=== PATIENT | male | born 1960 | race Two or more races ===

== ENCOUNTER 2018-05-03 09:38 | Inpatient (IN) | payer OTHER ==
[~2018-05-03] VITALS: Ht 180.3 cm; Wt 99.8 kg
[2018-05-03] MEDS ORDERED: LISINOPRIL10 MG ORAL (09:51)
[2018-05-03] MEDS ORDERED: HYDROCHLOROTH12.5 M2 ORAL (09:51)
[2018-05-03] MEDS ORDERED: ATENOLOL25 MG ORAL (09:51)
[2018-05-03] MEDS ORDERED: COMPLERA TABLE1 EACH ORAL (09:51)
[2018-05-03 10:05] VITALS: BP 136/91
--- NOTE | 2018-05-03 10:31 | Emergency Room Report ---
History of Present Illness General Chief Complaint: General Complaint Source: Patient Present Illness HPI 58-year-old male with history of hypertension, high cholesterol, family history of mom with VA in her 50s, presents with left shoulder, left anterior chest, left neck pain since the past few days with a sensation of lightheadedness upon standing yesterday. He reports taking a baby aspirin prior to arrival, still with this vague chest pain sensation, which she reports is a dull ache, and it' s the same pain is having his left shoulder chest and neck without any history of trauma. Shortness of breath, cough, hemoptysis, leg pain, recent travel, syncope. He reports this pain is unusual for him and he is not had a stress test in many many years. Allergies: Coded Allergies: No Known Allergies (Unverified , 05/03/18) Patient History Past Medical History: see triage record Reviewed Nursing Documentation: PMH: Agreed; PSxH: Agreed Nursing Documentation-PMH Past Medical History: No History, Except For Hx Cardiac Problems: No - HIV Hx Hypertension: Yes Review of Systems All Other Systems: negative except mentioned in HPI Physical Exam Vital Signs Date Time Temp Pulse Resp B/P (MAP) Pulse Ox O2 Delivery O2 Flow Rate FiO2 05/03/18 09:40 97.9 60 18 133/93 98 Room Air Sp02 EP Interpretation: reviewed, normal General Appearance: no apparent distress, alert, non-toxic Head: normocephalic Eyes: bilateral eye normal inspection, bilateral eye PERRL, bilateral eye EOMI ENT: normal ENT inspection, hearing grossly normal, normal pharynx, no angioedema, normal voice, moist mucus membranes Neck: normal inspection, full range of motion, supple, supple/symm/no masses Respiratory: chest non-tender, lungs clear, normal breath sounds, chest symmetrical, palpation of chest normal Cardiovascular #1: normal peripheral pulses, regular rate, rhythm Cardiovascular #2: 2+ radial (R), 2+ radial (L), 2+ dorsalis pedis (R), 2+ dorsalis pedis (L) Gastrointestinal: normal inspection, non tender, soft, no mass, no guarding, no rebound Rectal: deferred Genitourinary: normal inspection, no CVA tenderness Musculoskeletal: back normal, gait/station normal, normal range of motion, non- tender, no calf tenderness, Haylee's Sign negative Neurologic: alert, responsive, 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 I do not suspect his pain is coming from dissection or PE. Will admit this patient stable currently. EKG Diagnostic Results EKG Time: 10:14 EP Interpretation: No STEMI Rate: normal Rhythm: NSR ST Segments: no acute changes ASA given to the pt in ED: Yes Rhythm Strip Diag. Results Rhythm Strip Time: 10:30 EP Interpretation: yes Rate: 65 Rhythm: NSR, no PVC's, no ectopy Chest X-Ray Diagnostic Results Chest X-Ray Diagnostic Results : Chest X-Ray Ordered: Yes # of Views/Limited/Complete: 1 View Indication: Chest Pain EP Interpretation: Yes Interpretation: no consolidation, no effusion, no pneumothorax, no acute cardiopulmonary disease Impression: No acute disease Electronically Signed by: Ruth Archer MD Last Vital Signs Date Time Temp Pulse Resp B/P (MAP) Pulse Ox O2 Delivery O2 Flow Rate FiO2 05/03/18 10:06 65 13 Room Air 05/03/18 10:05 98.0 136/91 97 Disposition: ADMITTED INPATIENT Condition: Stable Signed Out To: RUTH García M.D May 03, 2018 10:31
[2018-05-03] MEDS ORDERED: Nitroglycerin 2% oint pkt TOPIC ONE (10:45)
[2018-05-03] MEDS ORDERED: Aspirin Baby 81mg ORAL ONE (10:45)
[2018-05-03 10:52] LABS: BASOPHILS % (AUTO) 1.2 % (0.0-2.0); EOSINOPHILS % (AUTO) 4.2 % (0.0-3.0); LYMPHOCYTES % (AUTO) 40.9 % (20.0-45.0); MEAN CORPUSCULAR VOLUME 90 FL (80-99); MONOCYTES % (AUTO) 6.9 % (1.0-10.0); NEUTROPHILS % (AUTO) 46.9 % (45.0-75.0); PLATELET COUNT 177 K/UL (150-450); RED BLOOD COUNT 6.25 M/UL (4.70-6.10); RED CELL DISTRIBUTION WIDTH 11.7 % (11.6-14.8); WHITE BLOOD COUNT 6.6 K/UL (4.8-10.8)
[2018-05-03 10:55] LABS: HEMOGLOBIN 18.9 G/DL (14.2-18.0)
[2018-05-03 11:38] LABS: ANION GAP 8 mmol/L (5-15); BLOOD UREA NITROGEN 14 mg/dL (7-18); CARBON DIOXIDE 32 MMOL/L (21-32); CHLORIDE 98 MMOL/L (98-107); CREATININE 1.2 MG/DL (0.55-1.30); POTASSIUM 4.2 MMOL/L (3.5-5.1); SODIUM 138 MMOL/L (136-145)
[2018-05-03 11:49] LABS: ALANINE AMINOTRANSFERASE 67 U/L (12-78); ALBUMIN 4.3 G/DL (3.4-5.0); ALBUMIN/GLOBULIN RATIO 0.8 (1.0-2.7); ALKALINE PHOSPHATASE 73 U/L (46-116); ASPARTATE AMINO TRANSFERASE 31 U/L (15-37); BILIRUBIN,TOTAL 0.7 MG/DL (0.2-1.0)
[2018-05-03 12:15] VITALS: BP 123/87
--- NOTE | 2018-05-03 13:47 | Diagnostic Imaging Report ---
Indication: Chest pain Comparison: None A single view chest radiograph was obtained. Findings: No definite infiltrate or pulmonary vascular congestion identified. The heart is enlarged. The aorta is mildly enlarged consistent with atherosclerotic vascular disease. The bones are osteopenic. Impression: No acute disease
[2018-05-03 13:49] VITALS: BP 120/80
[2018-05-03 16:00] VITALS: BP 101/63
[2018-05-03 17:00] VITALS: BP_SYST 113; BP_SYST 115; BP_SYST 120; BP_DIAS 71; BP_DIAS 77
[2018-05-03 20:00] VITALS: BP 111/71
[2018-05-03] MEDS: Heparin 5000 units/ml inj SUBQ SCH (21:00)
--- NOTE | 2018-05-03 23:46 | History and Physical Report ---
DATE OF ADMISSION: 05/03/2018 REASON FOR ADMISSION: Chest pain and dizziness. HISTORY OF PRESENT ILLNESS: This is a 58-year-old male with multiple risk factors for premature coronary disease who noted dizziness yesterday while at work. It was unprovoked, somewhat positional, and at times made him feel like the room was spinning. He did not go to work today, but did note left neck, shoulder, and chest discomfort for several days on an off, but not associated with activity. In the emergency room, he noted the dull achy pain persisted with no other constitutional symptoms. PAST MEDICAL HISTORY: Includes hypertension and hyperlipidemia. FAMILY HISTORY: Notable for premature coronary disease. SOCIAL HISTORY: Negative for smoking, alcohol, or substance abuse. MEDICATIONS: Reviewed and reconciled. REVIEW OF SYSTEMS: A 10-point review of systems performed, all systems negative other than noted above. PHYSICAL EXAMINATION: VITAL SIGNS: Blood pressure 133/93, pulse 60, respirations 18, and afebrile. HEENT: Conjunctivae pink. Oropharynx clear. Mucous membranes moist. NECK: Supple. No bruits. Jugular venous pressure normal. LUNGS: Clear. CARDIAC: Regular rhythm and rate. Normal S1, S2 with no murmur, rub, or gallop. ABDOMEN: Soft and nontender. EXTREMITIES: No edema. NEUROLOGIC: Nonfocal. DIAGNOSTIC DATA: EKG with sinus rhythm, slight J-point elevation in the precordial leads. Chest x-ray with no acute process. Troponin levels negative. Echocardiogram pending. Vital signs reviewed and the patient is presently nonorthostatic. IMPRESSION: 1. Dizziness, may be due to BPPV versus orthostatic symptoms. 2. Chest pain, may be an acute coronary syndrome or musculoskeletal. 3. History of hypertension, controlled. 4. History of hyperlipidemia. PLAN: 1. Cardiac monitoring. 2. Serial troponin. 3. Monitor orthostatics. 4. Carotid duplex. 5. Echocardiogram. 6. Continue beta-blockade and anti-platelet therapy with aspirin. 7. Check lipid panel. 8. Further recommendations to follow based on clinical course. Gerald Dotson M.D. : THADDEUS JOB#: [id number] CC:
[2018-05-04 04:00] VITALS: BP 118/72
[2018-05-04 08:00] VITALS: BP 134/88
[2018-05-04 08:37] LABS: BASOPHILS % (AUTO) 1.3 % (0.0-2.0); EOSINOPHILS % (AUTO) 4.1 % (0.0-3.0); HEMOGLOBIN 16.7 G/DL (14.2-18.0); LYMPHOCYTES % (AUTO) 39.7 % (20.0-45.0); MEAN CORPUSCULAR VOLUME 90 FL (80-99); MONOCYTES % (AUTO) 8.8 % (1.0-10.0); NEUTROPHILS % (AUTO) 46.1 % (45.0-75.0); PLATELET COUNT 156 K/UL (150-450); RED BLOOD COUNT 5.35 M/UL (4.70-6.10); RED CELL DISTRIBUTION WIDTH 11.4 % (11.6-14.8); WHITE BLOOD COUNT 5.3 K/UL (4.8-10.8)
[2018-05-04] MEDS: Heparin 5000 units/ml inj SUBQ SCH (08:46)
[2018-05-04] MEDS ORDERED: Lisinopril 10mg tab ORAL SCH (09:00)
[2018-05-04] MEDS ORDERED: Atenolol 25mg tab ORAL SCH ×2 (09:00)
[2018-05-04] MEDS ORDERED: Aspirin Baby 81mg ORAL SCH (09:00)
[2018-05-04 09:08] LABS: ALANINE AMINOTRANSFERASE 53 U/L (12-78); ALBUMIN 3.6 G/DL (3.4-5.0); ALBUMIN/GLOBULIN RATIO 0.9 (1.0-2.7); ALKALINE PHOSPHATASE 61 U/L (46-116); ANION GAP 6 mmol/L (5-15); ASPARTATE AMINO TRANSFERASE 25 U/L (15-37); BILIRUBIN,TOTAL 0.7 MG/DL (0.2-1.0); BLOOD UREA NITROGEN 15 mg/dL (7-18); CALCIUM 8.8 MG/DL (8.5-10.1); CARBON DIOXIDE 31 MMOL/L (21-32); CHLORIDE 104 MMOL/L (98-107); CHOLESTEROL 197 MG/DL (< 200); HDL CHOLESTEROL 31 MG/DL (40-60); POTASSIUM 3.8 MMOL/L (3.5-5.1); SODIUM 141 MMOL/L (136-145); TRIGLYCERIDES 152 MG/DL (30-150)
[2018-05-04 12:00] VITALS: BP 129/93
--- NOTE | 2018-05-04 18:16 | Progress Note ---
DATE: 05/04/2018 CARDIOLOGY AND INTERNAL MEDICINE PROGRESS SUBJECTIVE: The patient has no chest pain or shortness of breath. No dizziness. Monitored rhythm sinus. Troponins negative PHYSICAL EXAMINATION: VITAL SIGNS: Blood pressure 134/88, pulse 66, respiratory rate 18. LUNGS: Clear. CARDIAC: Regular. Normal S1, S2 with a fourth heart sound. ABDOMEN: Soft. No edema. LABORATORY DATA: White count 5 and hemoglobin 16.7. Total cholesterol 197, LDL 146, HDL 31. TSH negative. Chemistry panel normal. IMPRESSION: 1. Dizziness has resolved and was possibly due to BPPV or mild hypovolemia. 2. Hypertension with mild diastolic blood pressure elevations. 3. Dyslipidemia with low HDL, no signs of acute coronary insufficiency. 4. Polycythemia improved with hydration. PLAN: 1. Continue anti-platelet therapy with aspirin. 2. Continue to hold thiazide diuretic. 3. Increase exercise program as an outpatient. 4. Reassess for statin therapy long-term or niacin if tolerated. 5. Outpatient exercise stress test to be scheduled. 6. I have given him my office number for an exam this week and have I asked him to return to the hospital emergently should his chest pain recur. 7. He will be discharged home on current medication regimen. Gerald Dotson M.D. DR: Maryann JOB#: [id number] CC:
--- NOTE | 2018-05-05 12:22 | Discharge Summary ---
Discharge Summary Discharge Summary _ DATE OF ADMISSION: 05/03/2018 DATE OF DISCHARGE: 05/04/2018 REASON FOR ADMISSION: 58 years old male with past medical history of hypertension, hyperlipidemia , presented with complaint of dizziness while at work. It was not provoked unprovoked somewhat positional and at times felt like the room was spinning. He did not go to work the next days, intermittent i and not associated with any activity. In emergency room patient reported dull achy pain with no other constitutional symptoms. Vital signs were stable. Troponin was negative. EKG revealed sinus rhythm, no acute ischemic changes. Laboratory workup was essentially stable except elevated hemoglobin 18.9 and hematocrit 56 . Due to multiple risk factors for coronary disease, patient was admitted with diagnoses of dizziness, possible BPV versus orthostatic symptoms, chest pain , rule out acute coronary syndrome, possible musculoskeletal,pain, hypertension, hyperlipidemia., polycythemia. HOSPITAL COURSE: Patient admitted to telemetry floor. Patient was given 1 L of intravenous fluids. Serial troponin were negative. EKG revealed no acute ischemic changes. Patient was ruled out for acute ID. No change in orthostatic vital signs. Patient at home was on hydrochlorothiazide along with beta [place] for blood pressure management. Hydrochlorothiazide was held. Echocardiogram revealed preserved ejection fraction of 60% and right ventricular systolic pressure of 32. No evidence of wall motion abnormality. Antiplatelet therapy with aspirin and beta blockade were continued. Blood pressure was managed with beta [place] and remained stable. Nitroglycerin was on board as needed . DVT and GI prophylaxis provided. Lipid panel revealed borderline triglycerides of 152 and low HLD. Patient was counseled on low-fat low-cholesterol cardiac diet and need to increase exercise program. Patient condition stabilized. Dizziness resolved and was possibly due to the BPV versus mild hypovolemia. Polycythemia improved with hydration. Patient clinically improved. Patient to continue antiplatelet therapy with aspirin at home, and blood pressure management with beta [place]. Hold thiazide diuretic. Patient will need outpatient exercise stress test. Medical office /cardiology phone number provided . Patient to call for appointment. Patient will need further reassessment for statin therapy versus niacin if tolerated. Patient was stable for discharge Due to rapid and unexpected improvement patient condition patient was discharged in one day FINAL DIAGNOSES: Dizziness likely secondary to BPV versus mild hypovolemia due to dehydration Hypertension with mild diastolic blood pressure elevation Dyslipidemia Polycythemia-resolved Chest pain, probably of musculoskeletal origin-resolved DISCHARGE MEDICATIONS: See Medication Reconciliation list. DISCHARGE INSTRUCTIONS: Patient was discharged home. 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 I have been assigned to dictate discharge summary for this account. I was not involved in the patient's management. Inna Estrada NP May 05, 2018 12:22
--- NOTE | 2018-05-06 11:00 | Cardiology Report ---
APPROVED REPORT EXAM: Two-dimensional and M-mode echocardiogram with Doppler and color Doppler. INDICATION Chest Pain M-Mode DIMENSIONS IVSd1.4 (0.7-1.1cm)Left Atrium (MM)3.5 (1.6-4.0cm) LVDd3.5 (3.5-5.6cm)Aortic Root3.6 (2.0-3.7cm) PWd1.1 (0.7-1.1cm)Aortic Cusp Exc.2.0 (1.5-2.0cm) LVDs1.5 (2.5-4.0cm) PWs1.6 cm Normal left ventricular chamber size, systolic function and wall motion. Left ventricular ejection fraction estimated to be 60 %. Mild left ventricular hypertrophy. No evidence of pericardial effusion. All other cardiac chamber sizes are within normal limits. Focal aortic valve sclerosis with adequate cusp excursion. Thickened mitral valve leaflets with normal excursion. Mild mitral annulus and aortic root calcification. Pulmonic valve not well visualized. Normal tricuspid valve structure. IVC dilated at 2.3 cm with physiological collapse. A color flow and spectral Doppler study was performed and revealed: No aortic insufficiency. No mitral regurgitation. Mitral diastolic velocities suggest mild left ventricular diastolic dysfunction (Grade I). Trace tricuspid regurgitation. Tricuspid systolic velocities suggests peak right ventricular systolic pressure of 32 mmHg. No pulmonic regurgitation present.
== END 2018-05-04 15:20 | disposition home or self-care (01) | DRG 149 ==
LOC: EMR 10:30 → 2E 10:46 → EDBEDREQ 11:17
DX: R42 Dizziness and giddiness (principal); H81.10 Benign paroxysmal vertigo, unspecified ear; E86.1 Hypovolemia; E86.0 Dehydration; R07.89 Other chest pain; I10 Essential (primary) hypertension; E78.5 Hyperlipidemia, unspecified; D75.1 Secondary polycythemia
CPT/HCPCS: 36415; 71045; 80053; 80061; 83880; 84443; 84484; 85025; 93005; 93306; 93880; 96360; 99285